=== PATIENT | female | born 1960 | race Two or more races ===

== ENCOUNTER 2017-12-04 09:01 | Outpatient (CLI) | payer OTHER | END 2017-12-04 09:04 | disposition home or self-care (01) | LOC: RAD 09:01 | DX: M75.101 Unspecified rotator cuff tear or rupture of right shoulder, not specified as traumatic (principal); M75.41 Impingement syndrome of right shoulder ==

== ENCOUNTER 2017-12-04 09:07 | Outpatient (CLI) | payer OTHER | END 2017-12-04 09:09 | disposition home or self-care (01) | LOC: SONOGRAMA 09:07 | DX: E04.1 Nontoxic single thyroid nodule (principal) ==

== ENCOUNTER 2018-05-16 08:04 | Outpatient (CLI) | payer OTHER | END 2018-05-16 08:07 | disposition home or self-care (01) | LOC: RAD 08:04 → RX STUDY 08:15 | DX: E04.1 Nontoxic single thyroid nodule (principal); K21.9 Gastro-esophageal reflux disease without esophagitis ==

== ENCOUNTER 2018-09-18 09:22 | Outpatient (CLI) | payer OTHER | END 2018-09-18 09:27 | disposition home or self-care (01) | LOC: MAMO-SONO 09:22 | DX: Z12.31 Encounter for screening mammogram for malignant neoplasm of breast (principal); Z87.898 Personal history of other specified conditions; N60.21 Fibroadenosis of right breast; N60.22 Fibroadenosis of left breast; Z78.0 Asymptomatic menopausal state ==

== ENCOUNTER 2018-10-05 09:47 | Outpatient (CLI) | payer OTHER | END 2018-10-05 09:54 | disposition home or self-care (01) | LOC: NUCLEAR 09:47 | DX: M81.0 Age-related osteoporosis without current pathological fracture (principal) ==

== ENCOUNTER 2018-12-19 14:18 | Outpatient (CLI) | payer OTHER | END 2018-12-19 17:00 | disposition home or self-care (01) | LOC: TOM 14:18 | DX: I67.82 Cerebral ischemia (principal) ==

== ENCOUNTER 2018-12-27 12:47 | Outpatient (CLI) | payer OTHER | END 2018-12-27 12:58 | disposition home or self-care (01) | LOC: MAMO-SONO 12:47 → MAMO 607 13:15 | DX: N63.10 Unspecified lump in the right breast, unspecified quadrant (principal); N63.20 Unspecified lump in the left breast, unspecified quadrant ==

== ENCOUNTER 2019-05-07 07:50 | Outpatient (CLI) | payer OTHER | END 2019-05-07 08:12 | disposition home or self-care (01) | LOC: SONOGRAMA 07:50 → MAMO-SONO 08:15 | DX: M75.81 Other shoulder lesions, right shoulder (principal); E04.2 Nontoxic multinodular goiter ==

== ENCOUNTER → 2019-11-14 11:47 | Outpatient (CLI) | payer OTHER | END | disposition home or self-care (01) | LOC: LAB 11:47 | DX: R10.33 Periumbilical pain (principal); R10.32 Left lower quadrant pain ==

== ENCOUNTER → 2019-11-26 | Outpatient (CLI) | payer OTHER | END | disposition home or self-care (01) | LOC: TOM 07:15 | DX: R10.32 Left lower quadrant pain (principal); R10.33 Periumbilical pain | CPT/HCPCS: 74177; Q9965 ==

== ENCOUNTER 2020-12-07 14:08 | Outpatient (CLI) | payer OTHER | END 2020-12-07 14:18 | disposition home or self-care (01) | LOC: SONOGRAMA 14:08 → MAMO-SONO 12-08 13:45 | PROVIDERS: ATTEND Specialist | DX: E04.1 Nontoxic single thyroid nodule (principal) ==

== ENCOUNTER 2021-12-08 12:44 | Outpatient (CLI) | payer OTHER | END 2021-12-08 12:48 | disposition home or self-care (01) | LOC: MAMO-SONO 12:44 | PROVIDERS: ATTEND Family Medicine | DX: E04.2 Nontoxic multinodular goiter (principal); N60.11 Diffuse cystic mastopathy of right breast; Z80.3 Family history of malignant neoplasm of breast; N60.12 Diffuse cystic mastopathy of left breast ==

== ENCOUNTER 2022-12-01 12:54 | Outpatient (CLI) | payer OTHER | END 2022-12-01 12:59 | disposition home or self-care (01) | LOC: SONOGRAMA 12:54 | PROVIDERS: ATTEND Specialist | DX: E04.1 Nontoxic single thyroid nodule (principal) ==

== ENCOUNTER 2022-12-01 14:25 | Outpatient (CLI) | payer OTHER | END 2022-12-01 14:27 | disposition home or self-care (01) | LOC: NUCLEAR 14:25 | PROVIDERS: ATTEND Specialist | DX: M81.0 Age-related osteoporosis without current pathological fracture (principal) ==

== ENCOUNTER 2023-07-06 08:43 | Outpatient (CLI) | payer OTHER | END 2023-07-06 08:47 | disposition home or self-care (01) | LOC: SONOGRAMA 08:43 | PROVIDERS: ATTEND Family Medicine | DX: R60.9 Edema, unspecified (principal); S93.402A Sprain of unspecified ligament of left ankle, initial encounter ==

== ENCOUNTER 2024-07-17 11:26 | Outpatient (CLI) | payer OTHER | END 2024-07-17 11:28 | disposition home or self-care (01) | LOC: SONOGRAMA 11:26 | PROVIDERS: ATTEND Specialist | DX: E04.1 Nontoxic single thyroid nodule (principal) ==

== ENCOUNTER 2024-07-29 10:53 | Outpatient (CLI) | payer OTHER | END 2024-07-29 10:58 | disposition home or self-care (01) | LOC: TOM 10:53 | DX: R07.9 Chest pain, unspecified (principal) ==

== ENCOUNTER 2025-01-24 09:24 | Outpatient (CLI) | payer OTHER | END 2025-01-24 09:30 | disposition home or self-care (01) | LOC: SONOGRAMA 09:24 | PROVIDERS: ATTEND Family Medicine | DX: R10.2 Pelvic and perineal pain (principal) ==

== ENCOUNTER 2025-03-19 10:24 | Outpatient (CLI) | payer OTHER | END 2025-03-19 10:28 | disposition home or self-care (01) | LOC: RAD 10:24 | PROVIDERS: ATTEND Surgery | DX: M25.471 Effusion, right ankle (principal) ==

== ENCOUNTER 2025-03-25 10:39 | Outpatient (CLI) | payer OTHER | END 2025-03-25 10:40 | disposition home or self-care (01) | LOC: NUCLEAR 10:39 | PROVIDERS: ATTEND Surgery | DX: I87.2 Venous insufficiency (chronic) (peripheral) (principal) ==

== ENCOUNTER 2025-04-04 08:30 | Outpatient (CLI) | payer OTHER | END 2025-04-04 08:45 | disposition home or self-care (01) | LOC: TOM 08:30 | PROVIDERS: ATTEND Internal Medicine Gastroenterology | DX: R10.12 Left upper quadrant pain (principal) | CPT/HCPCS: 74178; Q9965 ==

== ENCOUNTER 2025-10-09 09:48 | Outpatient (CLI) | payer OTHER | END 2025-10-09 10:01 | disposition home or self-care (01) | LOC: MAMO-SONO 09:48 | PROVIDERS: ATTEND Family Medicine | DX: E04.1 Nontoxic single thyroid nodule (principal); R10.20 Pelvic and perineal pain unspecified side; N60.19 Diffuse cystic mastopathy of unspecified breast; Z12.31 Encounter for screening mammogram for malignant neoplasm of breast ==